=== PATIENT | female | born 1970 | race Caucasian/White ===

== ENCOUNTER → 2019-12-14 10:26 | Outpatient (CLI) | payer OTHER, SELFPAY ==
[2019-12-17 09:44] LABS: COVID19 Sendout Detected (Not Detected)
== END ==
PROVIDERS: Visit Provider Family Medicine
DX: R68.89 Other general symptoms and signs (principal)
CPT/HCPCS: 87635

== ENCOUNTER → 2021-08-19 10:57 | Outpatient (CLI) | payer OTHER, SELFPAY | PROVIDERS: Referring Provider Orthopaedic Surgery Orthopaedic Surgery of the Spine; Visit Provider Orthopaedic Surgery Orthopaedic Surgery of the Spine | DX: Z01.818 Encounter for other preprocedural examination (principal) | CPT/HCPCS: 93005 ==

== ENCOUNTER → 2021-08-28 11:29 | Outpatient (CLI) | payer OTHER, SELFPAY ==
[2021-08-28 12:41] LABS: COVID19 -Nasal RAPID Negative (Negative)
== END ==
PROVIDERS: Visit Provider Physician Assistant
DX: Z20.822 Contact with and (suspected) exposure to COVID-19 (principal)
CPT/HCPCS: 87635

== ENCOUNTER 2021-08-31 05:54 | Inpatient (IN) | payer OTHER, SELFPAY ==
[2021-08-27 10:49] VITALS: BMI 29.4
[2021-08-31] VITALS (16 sets, daily range): BP systolic 121–142; BP diastolic 66–79; PULSE 55–71; RESP 9–18; TEMP 36.2–37.2; O2SAT 93–100; BMI 26.6
[2021-08-31] MEDS: LACTATED RINGERS 1,000 ML 42 ML IV ×2 (07:08→09:15)
--- NOTE | 2021-08-31 07:42 | PM.PREOP ---
Pre-operative Note COVID-19 COVID-19 status: Negative Result date/Date tested (Pos, Neg/Pending): 08/29/21 Interval Note History & Physical reviewed/Exam performed by Physician: Yes Changes to H&P: No
[2021-08-31] MEDS: CEFAZOLIN 2 GM/20 ML SYRINGE IV ×3 (08:10→23:41)
--- NOTE | 2021-08-31 08:22 | SUR.OPER ---
Supine, head on gel donut. Arms padded with gel pads, tucked at sides, towel roll under shoulders. Safety belt at thigh. Legs uncrossed.
[2021-08-31] MEDS: BUPIVACAINE 0.25% (PF) 30 ML, EPINEPHrine 0.3 MG INJ (10:14)
--- NOTE | 2021-08-31 10:20 | P.OP_ITS ---
Operative Date/Time/Diagnoses Date of procedure: 08/31/21 Time of procedure: 07:45 Pre-op diagnosis: 1. C5-6, C6-7 spinal stenosis 2. C5-6, C6-7 spondylosis with radiculopathy Post-op diagnosis: same Procedure & Clinicians Procedure: 1. C5-6 C6-7 anterior cervical diskectomy and fusion 2. C5-6 C6-7 anterior interbody cage placement 3. C5-6 C6-7 anterior instrumentation with plate and screw placement in C5-C6 and C7 vertebrae 4. Utilization of microsurgical technique and operating microscope Same procedure as scheduled: Yes Indications: Patient has been having chronic neck pain and worsening cervical radiculopathy after a work injury. Patient failed multiple conservative management with worsening pain weakness and numbness in her upper extremity. Patient has been having difficulty performing activity of daily living. After discussing risks benefits of treatment options, patient elected proceed with surgery. Surgeon: Matt Jasmine Battery Tester Field: Melody Rene Click Yes if Unassisted: No Anesthesia Type: General Operative Notes Closure Type: primary Specimen(s): none sent Prosthetic devices, grafts, tissues, transplants, or devices: Globus Extend Plate, PEEK cages Estimated Blood Loss (mL): 5 Blood products transfused: none Procedure in detail: Patient was seen in the preoperative area. Risks and benefits of the surgery was discussed with the patient. Operative consent was obtained and placed in the chart. Patient was then taken to the operative room. Prophylactic antibiotic was given less than 0.5 hr prior to skin incision. General anesthesia was administered. Patient was placed into a supine position on her radiolucent table. Bilateral shoulders were taped down to allow proper C-arm imaging. Anterior cervical area was prepped and draped in a sterile fashion. Time-out was performed at this time. Using lateral C-arm imaging, the level between C5 and C7 was identified and marked on patient's neck. A oblique incision from midline towards medial border of sternocleidomastoid muscle was made. The platysma muscle was incised in line with skin incision. Metzenbaum scissor was used to develop the plane between the medial border of sternocleidomastoid d and the strap muscles medially. The carotid sheath and its contents were identified and protected behind the hand- held retractor during the entire case. The plane between the carotid sheath and strap muscles was developed with Metzenbaum scissors. Dissection was made down to the level of the anterior cervical fascia. Longus colli muscle was incised on the anterior aspect of vertebral bodies bilaterally from C5-C7. Spinal needle was placed into the C5-6 disc space and confirmed with lateral C-arm imaging. Using microsurgical technique and operative microscope, anterior cervical diskectomy was performed at C5-6 and C6-7 level. This was done by removing the disc material, removing the anterior and posterior osteophytes posterior longitudinal ligaments along with performing bilateral foraminotomies at both levels. Patient was found to have severe central and foraminal stenosis at both levels. Patient's stenosis was fully decompressed after decompression was completed. After the diskectomy was completed, 2 anterior interbody cages were obtained. The cages were packed with globus via cell bone grafting material. One cage each along with the bone grafting material was then packed into the interbody spaces from C5-C7 with one cage into each interbody level. After the cages were placed, the anterior cervical plate was stabilized to the C5-C7 vertebrae using 2 screws at each each level. Total 6 screws were placed. After confirming placement of the hardware with AP and lateral C-arm imaging, the screws were locked into the plate using the locking mechanism and torque limiting screwdriver. After the hardware was placed and confirmed with AP and lateral C-arm imaging, the wound was irrigated with sterile normal saline. The platysma muscle and the subcutaneous tissue was closed with 2-0 Vicryl. The skin was closed with 4-0 Monocryl and Steri-Strips. Patient tolerated the procedure well. Patient was transferred recovery room in stable condition. There were no complications. Complications: none Post-operative Condition: stable Disposition: PACU Plan for aftercare: Admit to inpatient hospital
--- NOTE | 2021-08-31 10:26 | DI.RAD.S_ITS ---
PROCEDURE: XR CERVICAL SPINE 2V OR 3V INDICATIONS: C5-6, C6-7 ACDF TECHNIQUE: 2 fluoroscopic images of the cervical spine. COMPARISON: [facility] MR, MR CERVICAL SPINE WITHOUT CONTRAST, 06/17/2021, 12:54. FINDINGS: Bones: Anterior fixation hardware at C5-C7 with evidence of discectomy. Soft tissues: Endotracheal tube is seen. IMPRESSION: Postsurgical changes of the cervical spine. Dictated by: Kain Montes M.D. on 08/31/2021 at 14:24 Approved by: Kain Montes M.D. on 08/31/2021 at 14:26
[2021-08-31] MEDS: ONDANSETRON 4 MG/2 ML INJ IV ×3 (10:48→20:27)
[2021-08-31] MEDS: HYDROMORPHONE 2 MG INJ IV (11:01)
[2021-08-31] MEDS: OXYCODONE/ACETAMINOPHEN 5/325 TABLET 1 TAB PO (11:31)
--- NOTE | 2021-08-31 12:13 | SUR.PHASEI ---
1210 hrs Pt transported to room 211. Report to KRISTEN Lara.
[2021-08-31] MEDS: SODIUM CHLORIDE 0.9% 1,000 ML 100 ML IV ×2 (12:24→22:41)
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
[2021-08-31] MEDS: OXYCODONE IR 5 MG TABLET 10 MG PO ×2 (14:36→20:27)
--- NOTE | 2021-08-31 16:24 | PT-IP ANOTE ---
Attempted to see pt x 2 this PM with pt refusing both times due to dizziness and nausea. She had been up twice to [facility] and became symptomatic both times. Per nursing, her BP has been stable. Pt is willing to work with PT in the morning.
[2021-08-31] MEDS: ACETAMINOPHEN 325 MG TABLET 650 MG PO (16:58)
--- NOTE | 2021-08-31 19:29 | PC.NURSE ---
A&Ox4. Arrived from PACU with anterior neck dressing CDI, cervical collar in place. Room air 96%. Pain 5/10 in neck and headache. Given PRN oxy and tylenol. Having some n/v, given zofran. Had 50 cc vomit after attempting to eat some dinner. Ns going at 100 into right hand. at bedside. Call light within reach, bed low.
[2021-08-31] MEDS: DOCUSATE 100 MG CAPSULE PO (20:27)
[2021-08-31] MEDS: SENNOSIDES 8.6 MG TABLET 17.2 MG PO (20:27)
[2021-08-31] MEDS: BACLOFEN 10 MG TABLET PO (20:28)
[2021-09-01 02:55] VITALS: BP 143/76; PULSE 58; RESP 18; TEMP 36.2; O2SAT 96
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
[2021-09-01 08:00] VITALS: BP 137/76; PULSE 60; RESP 16; TEMP 36.9; O2SAT 98
[2021-09-01] MEDS: PROGESTERONE, MICRONIZED 100 MG CAPSULE 200 MG PO (09:02)
[2021-09-01] MEDS: OXYCODONE IR 5 MG TABLET 10 MG PO ×2 (09:02→11:46)
[2021-09-01] MEDS: estradioL 1 MG TABLET PO (09:02)
[2021-09-01] MEDS: DOCUSATE 100 MG CAPSULE PO (09:02)
--- NOTE | 2021-09-01 10:13 | OT.IP.TRT ---
Current Diagnoses Spondylolisthesis, cervical region (08/31/21) Spinal stenosis, cervical region (08/31/21) Cervical disc disorder at C6-C7 level with radiculopathy (08/31/21) Surgery Performed Operation Date: 08/31/21 07:45 Actual Procedures p C5-6, C6-7 ACDF w. anterior instrumentation(Not Applicable) - Matt Jasmine MD Occupational Therapy Treatment Note M2 OT-IP Current Condition Start: 08/31/21 14:34 Freq: Status: Active Protocol: Document 08/31/21 14:36 [facility] (Rec: 08/31/21 14:51 [facility] [id number]) Occupational Therapy Current Condition Current Condition Evaluation Date 08/31/21 Treatment Diagnosis S/p C5-6, C6-7 ACDF Diagnosis Onset Date 08/31/21 Post Operative Precautions Cervical Spine Precautions Soft Collar for Comfort,No Heavy Lifting,Log Roll M3 OT- IP Subjective and Pain Start: 08/31/21 14:34 Freq: Status: Active Protocol: Document 09/01/21 10:05 [facility] (Rec: 09/01/21 10:13 [facility] [id number]) OT- Subjective Occupational Therapy Visit Type Type Treatment Note Visit Start Time 09:04 Visit Stop Time 09:28 Total Visit Minutes 24 Occupational Therapy Visit Comments Patient Comments Pt agreed to get up and get dressed, pt's fiancee in the room for caregiver training. Patient/Caregiver Goals To go home. OT Pain Assessment Pain When Pain Assessed At Rest Pain Present Pain Present Pain Reported Location l arm Intensity 5 Scale Used Numeric (0 - 10) M4 OT- IP ADL's Start: 08/31/21 14:34 Freq: Status: Active Protocol: Document 09/01/21 10:05 [facility] (Rec: 09/01/21 10:13 [facility] [id number]) OT HSV-Dtvk-Ccrstxp Comments OT Self-Feeding Comments NOt at meal time. OT ADL-Grooming General Evaluation Grooming Ability Independent OT ADL-Oral Care General Eval Oral Care Ability Independent Comments Oral Care Comments Educated at this time would be easier to just spit into a cup when rinsing her mouth out . Other option to hinge at her hips to lean into the sink to spit. OT ADL-Dressing General Eval Upper Body Dressing Ability Minimal Assistance Lower Body Dressing Ability Standby Assistance Comments OT Dressing Comments Able to do LB dressing comfortably when crossing her legs while seated. Pt needing ALFRED to help tread her arms into her sleeves of button front shirt. Pt needing assist to don the soft collar and pt's cedrice able to assist her. OT ADL-Toileting Comments OT Toileting Comments Pt not having to use the toilet at this time. OT ADL-Bathing Comments OT Bathing Comments Pt states to shower at home. Pt states to assist for shower and to look nto getting a shower chair. . M6 OT- IP Functional Cognition Start: 08/31/21 14:34 Freq: Status: Active Protocol: Document 09/01/21 10:05 [facility] (Rec: 09/01/21 10:13 [facility] [id number]) Cognitive Factors Limiting Selfcare Function Cognitive Comments Cognitive Assessment Comments NO deficits. M7 OT- IP Mobility and Balance Start: 08/31/21 14:34 Freq: Status: Active Protocol: Document 09/01/21 10:05 [facility] (Rec: 09/01/21 10:13 [facility] [id number]) OT- Bed Mobility Assessment Supine to Sit Supine to Sit Assist Standby Assistance Sit to Supine Sit to Supine Assist Standby Assistance OT-Transfer Assessment Sit to and From Stand Sit to and from Stand Standby Assistance,Contact Guard Assistance Transfers Transfer Ability Standby Assistance,Contact Guard Assistance Technique Transfer Destination Bed Devices Transfer Assistive Devices None,Gait Belt,Front Wheeled Walker Comments Mobility Comments Attempted to take a few steps without the FWW and pt unsteady and needing CGA, therefore at this time much safer to use the FWW. IN addition pt has pets in the house which the FWW will also be a good barrier to use as well. Able to show pt's how to amado/doff the gait belt. OT- Gait Assessment Comments Gait Ability Comments SBA with FWW. OT- Balance Assessment Sitting Balance and Reactions Static Sitting Balance Ability Normal Dynamic Sitting Balance Ability Good Standing Balance and Reactions Static Standing Balance Ability Good Dynamic Standing Balance Ability Fair Comments Other Balance Tests/Deviations/Treatment Pt states to get a FWW for : home use. M9 OT- IP Assessment and Plan Start: 08/31/21 14:34 Freq: Status: Active Protocol: Document 09/01/21 10:05 [facility] (Rec: 09/01/21 10:13 [facility] [id number]) OT Summary Assessment and Plan Potential Rehabilitation Potential Good Analytic Complexity at Evaluation Low Summary Progress Towards Goals Progressing Toward Goals Assessment Summary Able to go over ADl and mobility needs with pt and fiancee and both able to show good safety for all needs. Pt looking to go home today. Pt states to get a shower chair and FWW for home use. Goals Days to Meet Goals 1 Frequency of Treatment Frequency Of Treatment Once a Day Treatment Plan OT Treatment Plan ADL Training,Functional Cognition Training,Functional Mobility,Patient/Family Education,Discharge Planning Other Treatment Recommendations and Next Shower if still here Treatment Focus Discharge Recommendations OT Discharge Recommendations Home with Assistance,Home with 24/7 Assist Available Home Equipment Needs fww,shower chair Transportation Needs at Discharge Private Vehicle
--- NOTE | 2021-09-01 10:49 | CM.DANOTE ---
DCP: Case received, EMR reviewed and met with patient. Her significant other, Shahid Edwards was also in the room. Introduced self and role. Was able to obtain information regarding patient's baseline activity status prior to surgery. DCP assessment completed with information currently available. Patient is a 51 year old female who admitted yesterday morning to the care of the orthopedic team. PCP: Dr. Tovar. Payer: confirmed: [employer]. Patient came to the hospital for a surgical procedure. She had C5-6, C6-7 anterior cervical diskectomy and fusion. Patient has history of spinal stenosis, as well as cervical disc disorder. Met with patient in her room. Her partner, Shahid, was at bedside. Patient resides in [place]. At her baseline, she is independent. She had worked with O.T. yesterday, but not with P.T. secondary to nausea. She is feeling better today. Patient indicated, this was a result of a work related injury that happened back in 2019 when I was carrying a [place] bed. She had been employed at [employer]. P: Patient has discharge orders for home. She will be working with P.T prior to discharge. Emi Sheets RN/Construction Person Discharge Planning/Care Management Advanced directive, confirm from FAMILY Start: 08/31/21 12:31 Freq: Q24H Status: Active Protocol: Document 08/31/21 12:54 KA (Rec: 08/31/21 12:56 KA [id number]) Advance Directive, confirm on record Time 12:56 Person contacted Patient Copy received No CM Discharge Assessment Start: 09/01/21 10:44 Freq: Status: Active Protocol: Document 09/01/21 10:46 (Rec: 09/01/21 10:49 [id number]) Discharge Planning Assessment Assigned Armature Winder Emi Sheets RN/Construction Person Advance Directives? Yes Advance Directives on File No History Provided By Patient,Medical Record Prior Living Arrangements Mobile home Household Members significant other Type of transporation used prior to Drives own vehicle admit Independent with ADL's Yes Is patient alert and oriented? Yes Caregiver for Another No Barriers to Discharge No Discharge Plan Home Transportation Arrangement Significant other. Referrals Initiated None needed Whiteboard Updated in Patient Room with Yes name and ext. # of Armature Winder Review Status In Process Next Review Type Continued Stay Review Pre-Anesthesia Assessment Start: 08/26/21 12:32 Freq: Status: Active Protocol: Document 08/27/21 10:49 [facility] (Rec: 08/26/21 13:45 CAB [id number]) Pre-Anesthesia Assessment PAC Comment Reviewed pre-op EKG w/aparna See to proceed Patient Information Reviewed Via Phone Assessment Assessment Completed With Patient Diagnostic Results CBC Comment Outside CBC scanned, EKG @ 08/19/21, COVID @ 08/31/21 Primary Care Provider Durga Tovar Seen Specialist in Last 12 Months Yes Specialist Seen Orthopedist Primary Language Belarusian Mutuel Clerk Required No Height 5 ft 7 in Weight 188 lb Body Mass Index (BMI) 29.4 Hearing Ability Normal Visual Assist Glasses Dentition Type Teeth, Natural Present Comment Dyslexia - hands on best for learning Hx Anesthesia Reactions Yes: Hard time waking, felt panic Hx Family Anesthesia Reaction No Hx Malignant Hyperthermia No Hx Blood Transfusions No Anesthesia Review Requested No alcohol intake current alcohol intake frequency holidays/special occasions only Smoking Status Current some day smoker Tobacco type cigarettes how long ago did patient quit smoking Once in a blue rawls, if I'm stressed Substance Use Type does not use Pain Present Pain Reported Musculoskeletal Symptoms Difficulty Walking,Limited Range of Motion,Neck Pain History of Falling (Recent or History of No ) Patient is completely paralyzed or No completely immobile Mental Status Oriented to own ability Is patient on oxygen? No Does patient have MORRIS/SOB No Hx Sleep Apnea No Currently Taking a Beta Omar No Can You Climb a Flight of Stairs Without Yes SOB Hx Chest Pain No Hx SOB No Hx Syncope or Dizziness No Anti-Coagulant Therapy No Has a Dredge Engineer No Cardiac Testing No Hx Pacemaker/ICD No Pacemaker Rep Required? No Cardiac Clearance Received Not Applicable Diet Type At Home Regular dysphagia Yes: Trouble swallowing solids r/t pain Urinary Catheter Present No Hx Urinary Self Catheterization No Diabetes No Patient No Lactating No Hx Drug Resistant Organism No Presence of External or Internal Medical No Devices Have you had any close contact with Yes: Pt had COVID 12/14/19 someone diagnosed with COVID-19? Are you experiencing any of these No symptoms symptoms? Received a COVID vaccine? Yes: J&J Marital Status Single Lives With significant other Prior Living Arrangements Mobile home Support System Significant Other Does the Patient Have Assistance After Yes Surgery Patient Discharge Plan Description Return Home Comment Pt advised 1-2 day length of stay per surgeon Feels Safe in Current Environment Yes Been Physically Hurt or Threatened By a No Person in Current Environment Do you have thoughts of harming yourself None or others? Are you currently considering suicide? No Do you have a plan to hurt yourself or No Plan others? Do You Have Any Spiritual Beliefs That No May Affect Your HC Choices? Do You Have Any Cultural Practices That No May Affect Your HC Choices? Comment Pentecostal Who Can We Speak to About Patient's Care Family, friends Identifying Code for Release of Patient Declines to issue Information Health Care Proxy/Next of Kin Shahid (Boyfriend) Health Care Proxy Emergency Contact Name Jonatan (son) Emergency Contact Advance Directives? No Power of Behaviorist No PAC Instructions Durable medical equipment, Medications to take/avoid, Nasal antibiotic,No ETOH/ petroleum product on skin DOS, NPO,Post-op transportation,Pre -surgical wash,Sensory aids, Sturdy shoes/comfortable clothes,Do not bring valuables and remove jewelry
[2021-09-01 12:10] VITALS: O2SAT 95
--- NOTE | 2021-09-01 12:38 | PC.NURSE ---
A&Ox4. VSS. Pain 11/26, well controlled with 5 mg oxycodone. Dressing with minimal shadow drainage. Good appetite despite throat being sore. No n/v this morning. Soft collar in place. Iv removed. Discharge instructions reviewed. Questions answered. [place] off unit at 11:50, driving home.
== END 2021-09-01 11:50 | disposition home or self-care (01) | DRG 23 ==
PROVIDERS: Admitting Provider Orthopaedic Surgery Orthopaedic Surgery of the Spine; PCP Family Medicine Sports Medicine; Referring Provider Preventive Medicine Occupational Medicine; Visit Provider Orthopaedic Surgery Orthopaedic Surgery of the Spine
PROC: 0RG20A0 Fusion of 2 or more Cervical Vertebral Joints with Interbody Fusion Device, Anterior Approach, Anterior Column, Open Approach (ICD-10-PCS; principal; 2021-08-31 07:45)
DX: M50.123 Cervical disc disorder at C6-C7 level with radiculopathy (principal); M48.02 Spinal stenosis, cervical region; M43.12 Spondylolisthesis, cervical region; M47.22 Other spondylosis with radiculopathy, cervical region; F17.200 Nicotine dependence, unspecified, uncomplicated; Z20.822 Contact with and (suspected) exposure to COVID-19
CPT/HCPCS: 72040; 72100; 76000; 82962; 97162; 97165; 97530; 97535; C1776; J0171; J0690; J1100; J1170; J2250; J2405; J2704; J3010

== ENCOUNTER → 2022-06-28 09:58 | Outpatient (CLI) | payer OTHER, SELFPAY ==
[2021-08-31 06:37] VITALS: BMI 26.6
[2022-06-28 13:37] LABS: Add Manual Diff / Slide Review NO; Basophils Absolute Auto 0 /uL (0-100); Basophils Percent Auto 0.4 % (0-2); Eosinophils Absolute Auto 100 /uL (0-450); Eosinophils Percent Auto 1.9 % (2-4); Hematocrit 35.8 % (36-46); Hemoglobin 12.4 g/dL (12.0-16.0); Lymphocytes Absolute Auto 1800 /uL (1100-4500); Lymphocytes Percent Auto 27.5 % (25-40); Mean Corpuscular HGB Conc 34.8 % (30-36); Mean Corpuscular Hemoglobin 31.7 PG (26-34); Mean Corpuscular Volume 91.1 fL (80-100); Monocytes Absolute Auto 600 /uL (0-900); Monocytes Percent Auto 8.9 % (3-14); Neutrophils Absolute Auto 4100 /uL (1500-7000); Neutrophils Percent Auto 61.3 % (50-75); Platelet Count 274 X10^3/uL (150-400); Red Blood Cell Count 3.93 X10^6/uL (4.0-5.2); Red Cell Distribution Width 12.8 % (11.6-14.8); White Blood Cell Count 6.7 X10^3/uL (4.5-11.0)
[2022-06-28 14:02] LABS: Hemoglobin A1C% w Est Avg Glu 4.7 % (4.0-6.0)
[2022-06-28 14:13] LABS: BUN Creatinine Ratio 25.8 (6-22); Blood Urea Nitrogen 16 mg/dL (7-17); Calcium 8.5 mg/dL (8.4-10.2); Carbon Dioxide 25 mmol/L (22-32); Chloride 105 mmol/L (98-107); Estimated Glomerular Filt Rate > 60 mL/min (>60); Glucose 83 mg/dL (70-100); HEMOLYSIS < 15 (0-50); Potassium 4.1 mmol/L (3.4-5.1); Sodium 138 mmol/L (137-145)
== END ==
PROVIDERS: PCP Family Medicine Sports Medicine; Referring Provider Orthopaedic Surgery Orthopaedic Surgery of the Spine; Visit Provider Orthopaedic Surgery Orthopaedic Surgery of the Spine
DX: Z01.818 Encounter for other preprocedural examination (principal); Z01.812 Encounter for preprocedural laboratory examination; R73.9 Hyperglycemia, unspecified
CPT/HCPCS: 36415; 80048; 83036; 85025; 93005; 93010

== ENCOUNTER → 2022-08-09 09:43 | Outpatient (CLI) | payer OTHER, SELFPAY ==
[2021-08-31 06:37] VITALS: BMI 26.6
[2022-08-09 11:03] LABS: COVID19 -Nasal RAPID Negative (Negative)
== END ==
PROVIDERS: PCP Family Medicine Sports Medicine; Referring Provider Orthopaedic Surgery Orthopaedic Surgery of the Spine; Visit Provider Orthopaedic Surgery Orthopaedic Surgery of the Spine
DX: Z20.822 Contact with and (suspected) exposure to COVID-19 (principal)
CPT/HCPCS: 87635; C9803

== ENCOUNTER 2022-08-11 06:24 | Inpatient (IN) | payer OTHER, SELFPAY ==
[2021-08-31 06:37] VITALS: BMI 26.6
[2022-08-02 09:49] VITALS: BMI 29.7
[2022-08-11] VITALS (15 sets, daily range): BP systolic 101–139; BP diastolic 58–79; PULSE 55–75; RESP 8–16; TEMP 35.7–36.6; O2SAT 93–100; BMI 29.4
--- NOTE | 2022-08-11 | DI.RAD.S_ITS ---
PROCEDURE: XR LUMBAR SPINE 2-3V INDICATIONS: L3-4 L4-5 TLIF TECHNIQUE: 3 views of the lumbar spine were acquired. COMPARISON: None. FINDINGS: Bones: Intraoperative fluoroscopic views of discectomy and interbody fixation of L3-4 and L4-5 with pedicular screw and neel fixation. IMPRESSION: Intraoperative fluoroscopic views. Dictated by: Zack Hebert M.D. on 08/12/2022 at 9:45 Approved by: Zack Hebert M.D. on 08/12/2022 at 9:46
[2022-08-11] MEDS: LACTATED RINGERS 1,000 ML 42 ML IV ×2 (07:23→08:59)
--- NOTE | 2022-08-11 07:41 | PM.PREOP ---
Pre-operative Note COVID-19 COVID-19 status: Negative Result date/Date tested (Pos, Neg/Pending): 08/10/22 Criteria for continued procedure: Expected advancement of disease process, Possibility delay results in more complex future surgery or treatment, Increased loss of function, Continuing or worsening of significant or severe pain, Deterioration of the patient's condition or overall health and Delay expected to result in less-positive ultimate med/surg outcome Interval Note History & Physical reviewed/Exam performed by Physician: Yes Changes to H&P: No
[2022-08-11] MEDS: CEFAZOLIN 2 GM/100 ML PREMIX 100 ML IV ×3 (08:00→23:44)
[2022-08-11] MEDS: BUPIVACAINE 0.25% (PF) 30 ML, EPINEPHrine 0.3 MG INJ (08:24)
--- NOTE | 2022-08-11 08:36 | SUR.OPER ---
Prone on spine table, head in foam head support, padded chest and pelvic supports, gel pad at knees, lower legs supported by pillows; nipples, genitalia and toes free of pressure, arms secured on foam padded arm boards at <90 degrees abduction. Tape over blanket at thigh secured to table.
[2022-08-11] MEDS: BUPIVACAINE LIPOSOME 266 MG/20 ML VIAL INJ (08:42)
--- NOTE | 2022-08-11 11:59 | PM.OP.1 ---
Operative Date/Time/Diagnoses Date of procedure: 08/11/22 Time of procedure: 07:40 Pre-op diagnosis: 1. L3-4, L4-5 spinal stenosis with neurogenic claudication. 2. L3-4 spondylolisthesis 3. L3-4, L4-5 spondylosis with radiculopathy Post-op diagnosis: same Procedure & Clinicians Procedure: 1. L3-4, L4-5 Postero-lateral and posterior interbody fusion 2. L3-4, L4-5 interbody cage placement. 3. L3-4, L4-5 decompressive laminectomy with bilateral facetecomies 4. L3-4, L4-5 Posterior segmental instrumentation 5. Larimer of bone marrow from iliac crest 6. Utilization of microsurgical technique and operating microscope 7. Utilization of robotic assisted navigation Same procedure as scheduled: Yes Indications: Patient has been having chronic back pain and worsening lumbar radiculopathy and symptoms of neurogenic claudication caused by her injury while working. Patient failed multiple conservative management with worsening pain weakness and numbness in her lower extremity. Patient has been having difficulty performing activity of daily living. After discussing risks benefits of treatment options, patient elected proceed with surgery. Surgeon: Matt Jasmine Icu Registered Nurse: Michael Painting Click Yes if Unassisted: No Anesthesia Type: General Operative Notes Closure Type: primary Specimen(s): none sent Prosthetic devices, grafts, tissues, transplants, or devices: Globus CREO MIS screws, Rise cages Applied: catheter Estimated Blood Loss (mL): 150 Blood products transfused: none Procedure in detail: Patient was seen in the preoperative area. Risks and benefits of the surgery was discussed with the patient. Informed consent was obtained from the patient and placed in the chart. Surgical site was marked. Patient was taken to the operative room. General anesthesia was administered. Prophylactic antibiotic was given to the patient less than 30 min before the incision was made. Patient was placed into a prone position on the Bul[place]o table. Patient's back was then prepped and draped in the sterile fashion. Time-out was performed at this time. After patient was prepped and draped, patient's PSIS was palpated and marked bilaterally. Small 1 cm incision was made over the PSIS for placement of the reference probes. Two trocar was placed into the PSIS 1 on each side. The reference probe was attached to the trocar of the reference apparatus. At this time the C-arm imaging was used to confirm AP and lateral of L3, L4-L5 vertebrae and merged the C-arm imaging using the [employer] robotic navigation system with the CT of the lumbar spine. After successful merging was completed and confirmed, skin marker was used to claude out the skin incision using the [employer] robotic arm. Bilateral incision was made at this time. Pre templated trajectory was used and guided using the [employer] robotic navigation system for bilateral L3 L4, L5 pedicle screw placement. This was done by using the robotic arm to guide the high-speed bur to make a cortical entry point. Next a drill was placed also using the robotic arm and guided using the navigation system drilling partially through bilateral L3, L4, L5 pedicles. Next L3, L4, L5 pedicle screws it was pre templated and measured was placed onto the power motor coach bus driver and inserted into the pedicles bilaterally. After all 6 screws were placed C-arm imaging was taken of both AP and lateral to confirm the placement. Excellent placement of the screws were confirmed and a matched precisely with the pre planned screw placement using the navigation system. MARs retractor was inserted using [employer] guidence. Globus MARS retractors was placed inside the incision and docked onto the L3, L4 lamina. Using microsurgical technique and operating microscope, a L3, L4 laminectomy and L3-4, L4-5 facetectomy was performed using a Kerrison rongeur. Patient was found have severe central stenosis, lateral recess and neural foramen stenosis which was fully decompressed after the laminectomy facetectomy. More than 75% of the facets were removed during the process of decompression rendering L3-4, L4-5 level grossly unstable and required a fusion procedure at the same time. The disc space at L3-4, L4-5 was identified, and a total diskectomy was performed at L3-4, L4-5 level. The endplates were decorticated using a rasp and shaver. The total diskectomy and decortication was performed at L3-4, L4-5 level in order to to accomplish a L3-4, L4-5 fusion. The local bone from the laminectomy and facetectomy was saved for local bone grafting. After the total diskectomy and decortication was completed, Trifecta bone graft material was combined with local bone that was harvested earlier. At this time, a separate skin is incision was made over the iliac crest. A Jamshidi needle was inserted into the iliac crest through a separate skin incision. 5 cc of bone marrow aspiration was obtained through the separate skin incision using a Jamshidi needle from the iliac crest. The bone marrow aspiration was combined with local bone and the Trifecta bone grafting material. The bone grafting material was placed into the L3-4, L4-5 interbody space along with expandable cages. One cage each was inserted into the L3-4 L4-5 interbody space along with bone graft material. The cage was expanded to its maximum height using the torque limiting screwdriver. The disc preparation as well as the cage insertion were also performed under navigation guidance. After the cage was placed, AP and lateral C-arm imaging was taken to confirm placement of the cage and excellent position was confirmed. Globus MARS retractor was inserted and docked onto the L3-4, L4-5 posterolateral gutter on the right side. Using the power drill, posterior-lateral decortication was performed at L3-4, L4-5 level until bleeding cortical bone was identified. The remaining bone grafting material was placed into the L3-4, L4-5 posterior lateral gutter he order to accomplish posterolateral fusion at the L3-4, L4-5 level. At this time the tulips were attached to the L3, L4-L5 pedicle screw shanks. After measuring the length of the rods, they were inserted into the tulips of the pedicle screws and locked in place using locking caps and torque limiting screwdriver bilaterally. Total 6 caps and 2 titanium rods was used in order to complete the posterior instrumentation construct. After all the hardware was placed, and confirmed with AP and lateral C-arm imaging, the wound was then irrigated with sterile normal saline and packed with Ray-Tico gauze for 3 min to accomplish hemostasis. After the gauze was removed the deep fascia was closed with #1 Vicryl suture. The subcutaneous layer was closed with 2-0 Vicryl. The skin was closed with skin megan. Patient tolerated the procedure well. There were no complications. Neuro monitoring system was used to monitor patient's neurologic status throughout entire procedure. There was no disturbance of the neural monitoring signals throughout the case. Complications: none Post-operative Condition: stable Disposition: PACU Plan for aftercare: Admit to inpatient hospital
[2022-08-11] MEDS: fentaNYL 100 MCG/2 ML INJ IV ×3 (12:30→13:00)
[2022-08-11] MEDS: hydrOXYzine 50 MG/ML INJ 25 MG IM (12:49)
[2022-08-11] MEDS: OXYCODONE IR 5 MG TABLET PO (12:58)
--- NOTE | 2022-08-11 13:00 | SUR.PHASEI ---
1215 - Received to PACU after general anesthesia. Airway patent, self maintained. Report from Dr Arriaga and KRISTEN Richmond.
--- NOTE | 2022-08-11 13:34 | SUR.PHASEI ---
Transferred to room 204 with belongings bag x1. Received in room by KRISTEN Mendoza. VS remain stable.
[2022-08-11] MEDS: ONDANSETRON 4 MG/2 ML INJ IV (14:04)
[2022-08-11] MEDS: SODIUM CHLORIDE 0.9% 1,000 ML 100 ML IV (14:05)
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
[2022-08-11] MEDS: OXYCODONE IR 5 MG TABLET 10 MG PO ×2 (18:08→22:37)
[2022-08-11] MEDS: DOCUSATE 100 MG CAPSULE PO (20:28)
[2022-08-11] MEDS: SENNOSIDES 8.6 MG TABLET 17.2 MG PO (20:28)
[2022-08-11] MEDS: ACETAMINOPHEN 325 MG TABLET 650 MG PO (20:29)
[2022-08-12] VITALS (7 sets, daily range): BP systolic 101–115; BP diastolic 51–68; PULSE 68–77; RESP 12–20; TEMP 36.4–36.8; O2SAT 93–98
[2022-08-12] MEDS: BACLOFEN 10 MG TABLET PO (00:13)
--- NOTE | 2022-08-12 00:57 | PC.NURSE ---
Patient's back drsg intact with sanguinous drainage seeping through. Drsg reinforced at midnight.
[2022-08-12] MEDS: OXYCODONE IR 5 MG TABLET 10 MG PO ×3 (02:10→08:05)
[2022-08-12] MEDS: hydrOXYzine pamoate 25 MG CAPSULE PO ×2 (06:03→21:26)
[2022-08-12] MEDS: ACETAMINOPHEN 325 MG TABLET 650 MG PO ×2 (06:03→14:43)
[2022-08-12] MEDS: DOCUSATE 100 MG CAPSULE PO ×2 (08:05→21:26)
[2022-08-12] MEDS: PROGESTERONE, MICRONIZED 100 MG CAPSULE 200 MG PO (08:08)
[2022-08-12] MEDS: estradioL 1 MG TABLET PO (08:08)
[2022-08-12 09:04] LABS: Hematocrit 32.7 % (36-46); Hemoglobin 11.5 g/dL (12.0-16.0)
--- NOTE | 2022-08-12 09:31 | CM.DANOTE ---
DCP: Case received, EMR reviewed and met with patient. Introduced self and role. Was able to obtain information regarding patient's baseline activity status prior to her surgery, as well as her current living situation. DCP assessment completed with information currently available. Patient is a 52 year old female who admitted yesterday morning to the care of the orthopedic team. PCP: Dr. Tovar. Payer: confirmed: [employer] Patient came to the hospital for a surgical procedure. Patient had L3-4, L4-5 postero-lateral and posterior interbody fusion. Patient has history of spinal stenosis. Met with patient in her room. She was laying in bed, alert and oriented. She resides in [facility] spouse, Shahid. At her baseline, she is independent. She does have a 4WW and FWW, has not been using prior to surgery. She does drive, but short distances. Confirmed that her spouse will be able to assist her at home. She did work with [facility] yesterday, was a max assist. Will see how she does today. P: DCP to continue to follow for needs. Will see how she does with [facility] Home Health may be an option for her as well. Emi Sheets RN/Assembler Knife Discharge Planning/Care Management CM Discharge Assessment Start: 08/12/22 09:28 Freq: Status: Active Protocol: Document 08/12/22 09:29 (Rec: 08/12/22 09:30 [id number]) Discharge Planning Assessment Assigned Subscription Clerk Emi Sheets RN/Assembler Knife Advance Directives? Yes Advance Directives on File No History Provided By Patient,Medical Record Prior Living Arrangements Mobile home Household Members spouse Type of transporation used prior to Drives own vehicle admit Comment Patient only has been driving short distances. Independent with ADL's Yes Is patient alert and oriented? Yes Caregiver for Another No DME Already Rented / Owned FWW / Walker Comment Has available, but has not been using prior to surgery. Discharge Plan Home Transportation Arrangement Significant other. Referrals Initiated None needed Whiteboard Updated in Patient Room with Yes name and ext. # of Subscription Clerk Review Status In Process Next Review Type Continued Stay Review Pre-Anesthesia Assessment Start: 08/02/22 09:49 Freq: Status: Complete Protocol: Document 08/02/22 09:49 [facility] (Rec: 08/02/22 10:26 [facility] [id number]) Pre-Anesthesia Assessment Patient Information Reviewed Via Phone Assessment Assessment Completed With Patient Diagnostic Results BMP/CMP,CBC,EKG Comment Labs/ECG @ 06/28/22, COVID screen @ 08/09/22 Primary Care Provider Durga Tovar Seen Specialist in Last 12 Months Yes Specialist Seen Orthopedist Primary Language Montserratian Preferred Language Montserratian Disposal Plant Operator Required No Height 5 ft 7 in Weight 190 lb Body Mass Index (BMI) 29.7 Hearing Ability Normal Visual Assist Glasses Dentition Type Teeth, Natural Present Barriers to Learning None Comment Dyslexia-hands on best for learning Hx Anesthesia Reactions Yes: Hard time waking, felt panic Hx Family Anesthesia Reaction No Hx Malignant Hyperthermia No Hx Blood Transfusions No Hx Blood Transfusion Reaction No Anesthesia Review Requested No Stonework Supervisor No alcohol intake current alcohol intake frequency holidays/special occasions only Smoking Status Current some day smoker Tobacco type cigarettes how long ago did patient quit smoking Once in a blue rawls, if I'm stressed Substance Use Type does not use Pain Present Pain Reported Musculoskeletal Symptoms Abnormal Gait,Back Pain, Difficulty Walking,Muscle Weakness,Numbness,Radiating Pain into Limb,Tremors History of Falling (Recent or History of No ) Patient is completely paralyzed or No completely immobile Mental Status Oriented to own ability Is patient on oxygen? No Does patient have MORRIS/SOB No Hx Sleep Apnea No CPAP/BIPAP use not prescribed Currently Taking a Beta Omar No Can You Climb a Flight of Stairs Without Yes SOB Hx Chest Pain No Hx SOB No Hx Syncope or Dizziness No Anti-Coagulant Therapy No Has a Concrete Craftsman No Cardiac Testing No Hx Pacemaker/ICD No Pacemaker Rep Required? No Diet Type At Home Regular Dysphagia No Gastrointestinal Symptoms None Chronic UTI No Urinary Catheter Present No Hx Urinary Self Catheterization No Diabetes No HgbA1C 4.7 Date 06/28/22 Patient No Lactating No Hx Drug Resistant Organism No Presence of External or Internal Medical Yes: Cervical hardware Devices Received a COVID vaccine? Yes: J&J Received all doses? Yes Marital Status Lives With spouse Current Living Arrangements Mobile home Support System Spouse Does the Patient Have Assistance After Yes Surgery Patient Discharge Plan Description Return Home Comment Pt advised 2-3 day length of stay per surgeon Feels Safe in Current Environment Yes Been Physically Hurt or Threatened By a No Person in Current Environment Do you have thoughts of harming yourself None or others? Are you currently considering suicide? No Do you have a plan to hurt yourself or No Plan others? Do You Have Any Spiritual Beliefs That No May Affect Your HC Choices? Do You Have Any Cultural Practices That No May Affect Your HC Choices? Comment Kristine Who Can We Speak to About Patient's Care Family, friends Identifying Code for Release of Patient Declines to issue Information Health Care Proxy/Next of Kin Shahid () Health Care Proxy Emergency Contact Name Jonatan (son) Emergency Contact Advance Directives? Yes Advance Directives on File No Power of Supervisor Heat Treating No PAC Instructions Durable medical equipment, Medications to take/avoid, Nasal antibiotic,No ETOH/ petroleum product on skin DOS, NPO,Pre-surgical wash,Sensory aids,Sturdy shoes/comfortable clothes,Do not bring valuables and remove jewelry
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
--- NOTE | 2022-08-12 11:04 | PT-IP ANOTE ---
Nursing reported pt nausea and slight vomiting in am, hold PT for am. Will assess mobility progression in pm.
--- NOTE | 2022-08-12 12:54 | PT.IPTN ---
Current Diagnoses Spondylolisthesis, lumbar region (08/11/22) Spinal stenosis, lumbar region with neurogenic claudication (08/11/22) Surgery Performed Operation Date: 08/11/22 07:45 Actual Procedures p L3-4, L4-5 TLIF w. posterior instrumentation -Robot - Matt Jasmine MD Physical Therapy Treatment Note M2 PT-IP Current Condition Start: 08/11/22 17:25 Freq: NEEDED Status: Active Protocol: Document 08/12/22 12:42 SP (Rec: 08/12/22 15:23 SP [id number]) Physical Therapy Current Condition Current Condition Evaluation Date 08/11/22 Treatment Diagnosis s/p L3-4, L4-5 TLIF; difficulty in walking Onset Date 08/11/22 M3 PT-IP Subjective Start: 08/11/22 17:25 Freq: NEEDED Status: Active Protocol: Document 08/12/22 12:42 SP (Rec: 08/12/22 15:23 SP [id number]) Subjective Physical Therapy Visit Type Type Treatment Note Visit Start Time 12:42 Visit Stop Time 12:54 Total Visit Minutes 12 Notes in room, observed tx only. Nurse in room, provided 2nd person assist during mobility required. Vitals: seated EOB: BP 96/48 Symptomatic/progressed palor complexion progression sitting at EOB heavy Max Ax1 trunk support. supine: BP 98/51 * reports her BP ususally is upper 90s to lower 100s. Number of NURSE TECH Visits 1 Physical Therapy Visit Comments Patient Comments agreeable to do PT If want to work with me now would be good because the oxycodone makes me really sleepy. Therapy Pain Assessment Pain When Pain Assessed At Rest Pain Present Pain Present Pain Reported Location Left Hip Scale Used alot (no scale rating reported ) Description Spasm,With Movement Pain Behaviors Calling Out,Facial Grimacing, Holding Area,Restlessness, Wincing lower back Scale Used alot (no scale rating reported ) M4 PT-IP Mobility and Gait Start: 08/11/22 17:25 Freq: NEEDED Status: Active Protocol: Document 08/12/22 12:42 SP (Rec: 08/12/22 15:23 SP [id number]) PT-Bed Mobility Assessment Supine to Sit Supine to Sit Maximum Assistance,2 Person Assistance,Head of Bed Elevated Sit to Supine Sit to Supine Maximum Assistance,Total Assistance,2 Person Assistance Scooting Scooting Up and Down in Bed Dependent PT-Transfer Assessment Comments Mobility Comments Pt left sidelying, pillow between BLEs and behind back for support when arrived reported having back pain but willing to mobilize. Pt able to bring legs to EOB Min A by nurse as needed, L SL>sit Max Ax 2 person for trunk righting w/ cues for breath and abdominal bracing needed to support LB and pain control. Pt attempted to scoot forward to EOB Max A x2, unsuccessful. Sitting BLEs draped off bed Max A for trunk support and pt BUE heavily WB on bed reports back pain, pt reported nausea (NURSE TECH provided emesis bag and had to hold for pt), pt became increased palor face color, reported dizziness, nursing started assessing vitals when pt reported needed to lay down . Max/Total A x2 to sit> L SL> supine with cues log roll technique. Pt cried out spasming pain L proximal hamstring/posterior hip, NURSE TECH provided gentle STMs to proximal HS while asking pt feedback for directioning. NURSE TECH /nurse scooted pt up in bed, pillow under upper thighs for pelvic alignment support. Pt able to fall sleep. NURSE TECH turned on bed alarm and provided pt sheet over her before left, nurse and husbandn in room. Gait Assessment Comments Gait Comments unable at this time PT-Balance Assessment Sitting Balance and Reactions Static Sitting Balance Ability Poor M5 PT-IP Objective Assessments Start: 08/11/22 17:25 Freq: NEEDED Status: Active Protocol: Document 08/11/22 16:05 AB (Rec: 08/11/22 17:38 AB [id number]) Orientation Orientation/Cognition Level of Alertness Alert Orientation Name,Place,Situation Language Function Ability No Deficits Noted Safety Awareness Decreased Safety Awareness Memory Description No Deficits Noted Gross Range of Motion Lower Extremity ROM Assessment Within Functional Limits Strength Lower Extremity Strength Hip 3+/5 Knee 3+/5 Sensation Assessment Sensation Gross Sensation Left LE Impaired Light Touch Impaired Proprioception (Position) Impaired Sensation Description Numbness Muscle Tone Muscle Tone WNL Yes M6 PT-IP Treatment Start: 08/11/22 17:25 Freq: NEEDED Status: Active Protocol: Document 08/12/22 12:42 SP (Rec: 08/12/22 15:23 SP [id number]) Physical Therapy Treatment Education Education Provided Precautions,Safety Other Treatments Other Treatment Performed Education cues for breath and gentle abdominal bracing to support back during mobility to assist pain control. M7 PT-IP Assessment and Plan Start: 08/11/22 17:25 Freq: NEEDED Status: Active Protocol: Document 08/12/22 12:42 SP (Rec: 08/12/22 15:23 SP [id number]) PT Summary Assessment and Plan Potential Rehabilitation Potential Fair Status of Condition at Evaluation Evolving Summary Impairments Pain,ROM,Strength,Balance, Coordination,Sensation,Tone, Cognition,Bed Mobility, Transfers,Gait,Activity Tolerance Progress Towards Goals Slow Progress due to Pain,Slow Progress due to Medical Issues,Slow Progress due to Activity Tolerance Assessment Summary Pt required Max A x2 for L SL> sit, unable scoot forward fully EOB and heavy Max A x1 support in sitting. Pt reported dizziness, vitals assessed, nurse determined hypotensive. Max/Total A sit> SL>supine. At this time pt recommending HHPT 11/04 vs SNF due to medical and pain limited progression. Will continue to assess progress tomorrow. Recommending CGT with if able to go home. Goals Bed Mobility Goal Standby Assistance Transfer Goal Standby Assistance,Front Wheeled Walker Gait Goal Standby Assistance,Front Wheel Walker Gait Distance 100 Other Goals improve ambulation u sing 4WW SBA 150 ft up/down 4 steps L rail + R wall SBA Days to Meet Goals 5 Frequency of Treatment Frequency Of Treatment Twice a Day Treatment Plan Physical Therapy Treatment Plan Bed Mobility Training,Transfer Training,Gait Training, Therapeutic Exercise,Balance Retraining,Post Op Education, Discharge Planning,Hot or Cold Pack,Neuromuscular Re-ed, Coordination Retraining,Manual Therapy Other Recommendations and Next Treatment bed mob, transfers, gait, Focus stairs x4 L HR if able to be able safe DC home. CGT with pre DC home. Precautions Lumbar Precautions Log Roll,No Twisting,Limit Bending,Lifting Restriction of 10 lbs,Gait Belt above Incisional Area Recommendations To Nursing Amount of Assist Needed 3 or More Person Assist, Mechanical Lift Discharge Recommendations PT Discharge Recommendations Home with 11/04 Assist Available,Home Health,SNF Rehab,Home vs SNF Transportation Needs at Discharge Private Vehicle,Wheelchair/ Cabulance
--- NOTE | 2022-08-12 13:19 | PC.NURSE ---
Addendum entered by Sherri Grover R.N. 08/12/22 18:32: Patient tolerated Oxycodone 5mg very well, pain was adequately controlled and non drowsy. Normotensive. Original Note: Day shift note: Patient alert and oriented, sleeping between care. Very drowsy, however arouses easily. Unable to tolerate OOB with PT on second session. Patient became dizzy, pale, and C/O nausea. BP 98/51 and BG 128 mg/dl. Patient states feels better after supported back to supine position, BP 107/56, dizziness and nausea subsided. Spouse states patients baseline BP is high 90's low 100's systolic. Placed on O2 at 1L NC while sleeping due to min desats to 89%. 95% on 1L. Prior to event patient has been tolerating fluids. Wooten Catheter remains in place, clear yellow urine to gravity. Patient and spouse (Shahid) states Oxycodone 10 mg may be too strong and causing increased drowsiness. Dr. Dillard made aware of event post PT session, blood pressure, and drowsiness state. New order obtained for Oxycodone 5 mg PRN. Fluids encouraged. SCDs in place continuously. Call light within reach. Spouse Shahid at bedside providing supportive care.
[2022-08-12] MEDS: OXYCODONE IR 5 MG TABLET PO ×3 (14:42→23:33)
[2022-08-12] MEDS: SENNOSIDES 8.6 MG TABLET 17.2 MG PO (21:26)
[2022-08-12] MEDS: GABAPENTIN 300 MG CAPSULE PO (21:26)
[2022-08-12] MEDS: HYDROMORPHONE 0.5 MG INJ IV (21:27)
[2022-08-13] MEDS: ACETAMINOPHEN 325 MG TABLET 650 MG PO ×2 (02:18→18:01)
[2022-08-13 04:00] VITALS: BP 111/55; PULSE 77; RESP 14; TEMP 36.4; O2SAT 95
[2022-08-13] MEDS: OXYCODONE IR 5 MG TABLET PO ×3 (04:31→20:49)
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
[2022-08-13] MEDS: BACLOFEN 10 MG TABLET PO ×2 (07:44→18:51)
[2022-08-13 08:16] VITALS: BP 106/59; PULSE 75; RESP 19; TEMP 36.3; O2SAT 96
[2022-08-13] MEDS: MAGNESIUM HYDROXIDE 30 ML UDC PO (08:31)
[2022-08-13] MEDS: DOCUSATE 100 MG CAPSULE PO ×2 (08:31→20:48)
[2022-08-13] MEDS: estradioL 1 MG TABLET PO (08:32)
[2022-08-13] MEDS: PROGESTERONE, MICRONIZED 100 MG CAPSULE 200 MG PO (08:32)
--- NOTE | 2022-08-13 09:10 | OT.IP.TRT ---
Current Diagnoses Spondylolisthesis, lumbar region (08/11/22) Spinal stenosis, lumbar region with neurogenic claudication (08/11/22) Surgery Performed Operation Date: 08/11/22 07:45 Actual Procedures p L3-4, L4-5 TLIF w. posterior instrumentation -Robot - Matt Jasmine MD Occupational Therapy Treatment Note M2 OT-IP Current Condition Start: 08/12/22 13:10 Freq: Status: Active Protocol: Document 08/12/22 10:22 [facility] (Rec: 08/12/22 13:42 [facility] [id number]) Occupational Therapy Current Condition Current Condition Evaluation Date 08/12/22 Treatment Diagnosis S/p L3-4, L4-5 TLIF Diagnosis Onset Date 08/11/22 Post Operative Precautions Lumbar Precautions Log Roll,No Twisting,Limit Bending,Lifting Restriction of 10 lbs,Gait Belt above Incisional Area M3 OT- IP Subjective and Pain Start: 08/12/22 13:10 Freq: Status: Active Protocol: Document 08/13/22 09:32 [facility] (Rec: 08/13/22 09:43 [facility] [id number]) OT- Subjective Occupational Therapy Visit Type Type Treatment Note Visit Start Time 09:04 Visit Stop Time 09:30 Total Visit Minutes 26 Occupational Therapy Visit Comments Patient Comments Pt wanting to try to get up and states not feeling okay. Patient/Caregiver Goals TO go home. OT Pain Assessment Pain When Pain Assessed At Rest Pain Present Pain Present Pain Reported Location Left Hip Intensity 6 Scale Used Numeric (0 - 10) M4 OT- IP ADL's Start: 08/12/22 13:10 Freq: Status: Active Protocol: Document 08/13/22 09:32 [facility] (Rec: 08/13/22 09:43 [facility] [id number]) OT [id number] Comments OT Self-Feeding Comments Pt agreed to have Ensure again . OT ADL-Grooming Comments OT Grooming Comments Pt able to wash her face after set-up of wash cloth. OT ADL-Oral Care Comments Oral Care Comments Pt able to swab her mouth out after having emesis. OT ADL-Toileting General Evaluation Toileting Ability Total Assistance Comments OT Toileting Comments pisano in place OT ADL-Bathing Comments OT Bathing Comments LOw BP not appropriate at this time. M5 OT- IP IADL's Start: 08/12/22 13:10 Freq: Status: Active Protocol: Document 08/12/22 10:22 [facility] (Rec: 08/12/22 13:42 [facility] [id number]) OT-Instrumental Activities of Daily Living Home Safety Awareness Home Safety Comments Pt very groggy at this time, needing step by step instructions to follow. M6 OT- IP Functional Cognition Start: 08/12/22 13:10 Freq: Status: Active Protocol: Document 08/13/22 09:32 [facility] (Rec: 08/13/22 09:43 [facility] [id number]) Cognitive Factors Limiting Selfcare Function Cognitive Ability Level of Alertness Alert,Drowsy Patient Orientation Name,Situation Attention Span Ability Capable of Focused Attention, Capable of Sustained Attention Ability to Follow Commands Able to Follow One Step Commands Cognitive Comments Cognitive Assessment Comments Pt much more alert today and able to follow commands better . M7 OT- IP Mobility and Balance Start: 08/12/22 13:10 Freq: Status: Active Protocol: Document 08/13/22 09:32 [facility] (Rec: 08/13/22 09:43 [facility] [id number]) OT- Bed Mobility Assessment Supine to Sit Supine to Sit Assist Maximum Assistance Sit to Supine Sit to Supine Assist Maximum Assistance OT-Transfer Assessment Comments Mobility Comments MOD/MAXAx1 to get to the edge of the bed. MAX A to help scoot her to the edge of the bed. BP 115/56 supine and dropped to 91/44 and feeling nauseous and having emesis and waiting to lie down again. BP 117/65, nursing present and aware. Pt while seated on the edge of the bed, not able to fully extend for LLE into extension. OT- Balance Assessment Sitting Balance and Reactions Static Sitting Balance Ability Fair M9 OT- IP Assessment and Plan Start: 08/12/22 13:10 Freq: Status: Active Protocol: Document 08/13/22 09:32 [facility] (Rec: 08/13/22 09:43 [facility] [id number]) OT Summary Assessment and Plan Potential Rehabilitation Potential Good Analytic Complexity at Evaluation Moderate Summary OT Impairments Pain,Balance,Functional Mobility,Grooming,Dressing, Toileting,Bathing,Toilet Transfers,Shower Transfers, Activity Tolerance Progress Towards Goals Slow Progress due to Pain,Slow Progress due to Medical Issues Assessment Summary Pt having low BP when getting to the edge of the bed and having emesis. Pt still needing MAX A x1 for bed mobility needs. Pt hoping to go home with her , however pending progress and caregiver training, may need to go to skilled rehab. Goals Grooming Goal Independent Dressing Goal Minimal Assistance Toileting Goal Minimal Assistance Bathing Goal Minimal Assistance Toilet Transfer Goal Independent Shower Transfer Goal Contact Guard Assistance Days to Meet Goals 20 Frequency of Treatment Frequency Of Treatment Once a Day Treatment Plan OT Treatment Plan ADL Training,Functional Mobility,Patient/Family Education,Discharge Planning Discharge Recommendations OT Discharge Recommendations SNF Rehab Other Discharge Recommendations HOpefully pt able to make good progress and able to go home with her with 11/04 assist pending caregiver training when appropriate. Transportation Needs at Discharge Wheelchair/Cabulance,Stretcher /Ambulance
[2022-08-13] MEDS: ONDANSETRON 4 MG/2 ML INJ IV (09:18)
--- NOTE | 2022-08-13 10:39 | CM.DPC ---
Addendum entered by Emi Sheets R.N. 08/13/22 11:59: Gloria at [facility] called back, she had spoken to emiliano. She indicated that they are a contract company with [employer] that only follow patient while in the hospital. Otherwise, Gloria indicated that she would still contact her regular [employer] for insurance auth. Addendum entered by Emi Sheets R.N. 08/13/22 11:43: Spoke to patient in her room. She was laying in bed, alert and oriented. She feels that if her blood pressure improves, she can go home. She is also willing to consider going to halfway as plan B, if needed, but hopeful for home. She is aware of some facilities in [facility], and that [facility] is reviewing, and would need insurance auth. Addendum entered by Emi Sheets R.N. 08/13/22 11:19: Gloria at [facility] called back. She indicated that they are contracted with [employer]. She did look up the claim number for [employer], which is: [id number]. Let her know that this DC Cleat Thrower attempted to get in touch with them, but are closed. Gloria indicated, would most likely be Tuesday. Carrie, career counselor, did speak to someone at her insurance, [employer]. It happens that it is [employer]. Attempted to call them back, their phone number is: [phone]. There was a voice mail, left a message letting insurance know that DC Summary is not signed off because she is not discharging home due to blood pressures, pain, and not doing well with P.T. In the message also indicated that patient may need halfway. Called Gloria back at [facility] and let her know, and gave her phone number. She indicated, she has not worked with [employer] before, must be a contract company through [employer]. There is an auth number, but this if for hospital surgery, and the clainm number is the [id number]. The main barrier will be getting the insurance auth, otherwise, Gloria indicated she should be able to accept. Will speak to patient today. Original Note: DCP Cont: Was informed by Michael Ponce, PAC, patient not doing well with P.T, orthostatic hypotension. Patient not ready for discharge today. He had mentioned the possibility of patient needing halfway, per P.T. Let him know that this DC regional planner can start referrals and speak to patient, but she is [employer], and may be having difficulties getting auth. He also mentioned, she may be better to go home tomorrow. Went ahead and called some halfway facilities and faxed referrals for plan B, [facility], faxed and left message, [facility], faxed and left message, and [facility], faxed and left message. Called the [employer] at: [phone], but they are closed today. P: DCP to continue to follow. Will meet with patient today. Have sent referrals for plan B, skilled facilities, but no auth will be able to be obtained until Tuesday, yesterday being a holiday, and today, confirming that [employer] is closed. Patient could possibly go home tomorrow if improved, Emi Sheets RN/Switch Engineer
--- NOTE | 2022-08-13 12:10 | PT-IP ANOTE ---
Pt checked on in am but actively vomiting when attempting to sit up in bed. Per nursing, hold. Check back in afternoon.
[2022-08-13 12:14] VITALS: BP 117/64; PULSE 76; RESP 16; TEMP 37; O2SAT 93
--- NOTE | 2022-08-13 13:24 | PT-IP ANOTE ---
Pt in bed vomiting again. states she has been doing so on and off all day. did not want to attempt to wake pt for therapy.
[2022-08-13] MEDS: LACTATED RINGERS 1,000 ML 75 ML IV (13:36)
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
[2022-08-13] MEDS: BISACODYL 10 MG SUPP PR (14:07)
--- NOTE | 2022-08-13 15:25 | PC.NURSE ---
Addendum entered by Shabbir العراقي R.N. 08/13/22 15:49: Pt also does not want the Wooten removed at this time. Original Note: Day shift: Pt given suppository today per MAR at approx 1400. Placed on bedpan at approx 1510. No BM at this time. Pt also denies passing any flatus.
[2022-08-13] MEDS: polyethylene glycoL 3350 17 GM POWD.PACK PO (16:28)
[2022-08-13 17:06] VITALS: BP 106/60; PULSE 84; RESP 17; TEMP 36.9; O2SAT 98
--- NOTE | 2022-08-13 17:33 | PC.NURSE ---
Day shift: Pt was asked again if Wooten could be removed at approx 1700. She does not want it removed yet. She does report passing some flatus.
[2022-08-13 19:35] VITALS: BP 116/57; PULSE 81; RESP 18; TEMP 36.7; O2SAT 94
[2022-08-13] MEDS: SENNOSIDES 8.6 MG TABLET 17.2 MG PO (20:49)
[2022-08-13] MEDS: SODIUM CHLORIDE 0.9% FLUSH 10 ML IV (20:49)
[2022-08-13] MEDS: GABAPENTIN 300 MG CAPSULE PO (20:49)
[2022-08-13] MEDS: hydrOXYzine pamoate 25 MG CAPSULE PO (20:49)
[2022-08-14 02:18] VITALS: BP 117/66; PULSE 69; RESP 18; TEMP 36.4; O2SAT 97
[2022-08-14] MEDS: hydrOXYzine pamoate 25 MG CAPSULE PO (02:37)
[2022-08-14] MEDS: OXYCODONE IR 5 MG TABLET PO (02:37)
[2022-08-14 04:53] VITALS: BP 113/63; PULSE 74; RESP 18; TEMP 36.3; O2SAT 95
[2022-08-14] MEDS: HYDROMORPHONE 0.5 MG INJ IV (05:14)
[2022-08-14 08:34] VITALS: BP 97/56; PULSE 62; RESP 16; TEMP 36.3; O2SAT 96
[2022-08-14] MEDS: DOCUSATE 100 MG CAPSULE PO (08:36)
[2022-08-14] MEDS: ACETAMINOPHEN 325 MG TABLET 650 MG PO (08:36)
[2022-08-14] MEDS: polyethylene glycoL 3350 17 GM POWD.PACK PO (08:36)
[2022-08-14] MEDS: SODIUM CHLORIDE 0.9% FLUSH 10 ML IV (08:37)
[2022-08-14] MEDS: estradioL 1 MG TABLET PO (08:37)
[2022-08-14] MEDS: PROGESTERONE, MICRONIZED 100 MG CAPSULE 200 MG PO (08:37)
--- NOTE | 2022-08-14 10:33 | CM.DPNOTE ---
Discharge Planning Note: Met with patient. She states she is feeling much better today and no more N/V. She will be working with PT this morning. She states she is hoping to go home later. Plan: When medically cleared, home with spouse. Margo Allen RN/DCP
[2022-08-14 11:44] VITALS: BP 110/53; PULSE 83; RESP 16; TEMP 36.4; O2SAT 97
--- NOTE | 2022-08-14 11:56 | PT.IPTN ---
Addendum entered and electronically signed by Cindy Brown, DENIZ 08/14/22 18:34: Vitals taken: supine: BP 99/58, HR 70 SaO2 92% on RA Seated EOB: 102/53 HR 67 Original Note: Current Diagnoses Spondylolisthesis, lumbar region (08/11/22) Spinal stenosis, lumbar region with neurogenic claudication (08/11/22) Surgery Performed Operation Date: 08/11/22 07:45 Actual Procedures p L3-4, L4-5 TLIF w. posterior instrumentation -Robot - Matt Jasmine MD Physical Therapy Treatment Note M2 PT-IP Current Condition Start: 08/11/22 17:25 Freq: NEEDED Status: Discharge Protocol: Document 08/14/22 10:22 SP (Rec: 08/14/22 18:31 SP [id number]) Physical Therapy Current Condition Current Condition Evaluation Date 08/11/22 Treatment Diagnosis s/p L3-4, L4-5 TLIF; difficulty in walking Onset Date 08/11/22 M3 PT-IP Subjective Start: 08/11/22 17:25 Freq: NEEDED Status: Discharge Protocol: Document 08/14/22 10:22 SP (Rec: 08/14/22 18:31 SP [id number]) Subjective Physical Therapy Visit Type Type Treatment Note Visit Start Time 11:23 Visit Stop Time 11:56 Total Visit Minutes 33 Notes Pt agreeable CGT with , called to get ETA arrival. completed CGT including donning gait belt, bed mobility, transfer/gait/ stair support required to pt. Number of CHIEF CHEMIST Visits 2 Physical Therapy Visit Comments Patient Comments Pt agreeable to working with CHIEF CHEMIST 2nd attempt, waited for arrival for CGT. Patient Goals Return home with to assist her 11/04 available. Therapy Pain Assessment Pain When Pain Assessed During Mobility Pain Present Pain Present Pain Reported Location Left Hip Scale Used some pain but no tingling, doable Description With Movement Pain Behaviors Facial Grimacing,Moaning Pain Management Techniques Distraction,Re-positioning, Timing of Activity with Medications lower back Intensity 4 Scale Used Numeric (0 - 10) M4 PT-IP Mobility and Gait Start: 08/11/22 17:25 Freq: NEEDED Status: Discharge Protocol: Document 08/14/22 10:22 SP (Rec: 08/14/22 18:31 SP [id number]) PT-Bed Mobility Assessment Supine to Sit Supine to Sit Maximum Assistance,1 Person Assistance,Head of Bed Elevated Scooting Scooting to Edge of Bed Contact Guard Assistance PT-Transfer Assessment Sit to and From Stand Sit to and from Stand Contact Guard Assistance, Minimal Assistance,1 Person Assistance,Use of Upper Extremities Equipment Transfer Assistive Device Gait Belt,Front Wheeled Walker Orthotic/Prosthetic Devices or Brace: No Transfers Transfer Destination Chair,Wheelchair Transfer Technique pt ambulated Transfer Ability Level of Assist Contact Guard Assistance, Minimal Assistance,1 Person Assistance,Use of Upper Extremities Comments Mobility Comments Pt in R SL in bed when arrived . Provided tx 2nd (waited for arrival). CGT w/ , L SL>sit Max A for trunk righting support (cued support at upper back and pt abdominal brace engagement if needed), self LEs toEOB. Scoot to EOB CGA. Sit>stand CG/ Min A w/FWW. Gait to hallway w/c 6 ft CGA/ Phill, little unsteady BLEs but no buckled, cued quad facilitation for safety. CGA stand>sit in w/c. Wheeled pt to stairs, complete ascend/descend 4 stairs L HR and Pressure RUE on inside R HR assimulate wall step to patterning lead RLE ascend/ LLE descend, good CGA, stable. Pt gait back to room approx 120 ft w/ FWW, cued for knee extension swing phase to heel strike and quad facilitation during midstance for normal patterning/stability improved. Pt requested use of toilet when retured to room, CGA and Min A slow descent sit toilet by , self pericare in sitting and brief mgt pre sit/ stand, use grab bar as at home . Pt walked to sink 10 ft, light hand contact sink for stability, CGA/SBA for safety. Pt walk to chair, SPT cued centered pre sit, CG/BUEs slow descent to sit in chair. Pt had call light and all needs in reach before left. Notified nursing/care mgt pt is doing well able to go home to assist 11/04 available for safety/stability support. Gait Assessment Gait Gait Assistance Required: Contact Guard Assist,Minimum Assistance,1 Person Assist Distance (Feet) 140 Assistive Devices Assistive Device Gait Belt,Front Wheeled Walker Orthotic/Prosthetic Devices or Brace: No Gait Deviations General Gait Pattern Antalgic,Decreased Stride Length,Decreased Feet Clearance,Narrow Based Gait, Step-to Gait Factors Limiting Gait Function Factors Limiting Gait Function Decreased Activity Tolerance, Decreased Strength,Pain,Poor Balance,Poor Safety Awareness Comments Gait Comments see mobility comments. Stair Climbing Assessment Evaluation Level of Assist On Stairs Contact Guard Assistance, Minimal Assistance,1 Person Assistance Devices Stair Climbing Assistive Devices Left Railing,Right Railing Technique/Endurance Stair Climbing Direction Ascend and Descend Stair Climbing Technique Step to Step Number of Steps Climbed 4 Stair Climbing Set # Repetitions (reps) 1 Comments Stair Climbing Comments see mobility comments PT-Balance Assessment Sitting Balance and Reactions Static Sitting Balance Ability Good Dynamic Sitting Balance Ability Fair Standing Balance and Reactions Static Standing Balance Ability Good Dynamic Standing Balance Ability Fair Device Used FWW M5 PT-IP Objective Assessments Start: 08/11/22 17:25 Freq: NEEDED Status: Discharge Protocol: Document 08/11/22 16:05 AB (Rec: 08/11/22 17:38 AB [id number]) Orientation Orientation/Cognition Level of Alertness Alert Orientation Name,Place,Situation Language Function Ability No Deficits Noted Safety Awareness Decreased Safety Awareness Memory Description No Deficits Noted Gross Range of Motion Lower Extremity ROM Assessment Within Functional Limits Strength Lower Extremity Strength Hip 3+/5 Knee 3+/5 Sensation Assessment Sensation Gross Sensation Left LE Impaired Light Touch Impaired Proprioception (Position) Impaired Sensation Description Numbness Muscle Tone Muscle Tone WNL Yes M6 PT-IP Treatment Start: 08/11/22 17:25 Freq: NEEDED Status: Discharge Protocol: Document 08/14/22 10:22 SP (Rec: 08/14/22 18:31 SP [id number]) Physical Therapy Treatment Education Education Provided Precautions,Safety Other Treatments Other Treatment Performed Continued education cues for breath and gentle abdominal bracing to support back during mobility to assist pain control. M7 PT-IP Assessment and Plan Start: 08/11/22 17:25 Freq: NEEDED Status: Discharge Protocol: Document 08/14/22 10:22 SP (Rec: 08/14/22 18:31 SP [id number]) PT Summary Assessment and Plan Potential Rehabilitation Potential Fair Status of Condition at Evaluation Evolving Summary Impairments Pain,ROM,Strength,Balance, Coordination,Sensation,Tone, Cognition,Bed Mobility, Transfers,Gait,Activity Tolerance Progress Towards Goals Progressing Toward Goals,Slow Progress due to Pain,Slow Progress due to Activity Tolerance Assessment Summary Pt required Max A for bed mob, CG/ Min A during transfer, gait using FWW and stair mgt L HR/ lateral pressure wall assimulatinon on R that her was able to assist her during CGT tx. Pt is ok to return home with to assist her 11/04 available when medically cleared, recommending HHPT to progress strength and mobility to PLOF. Goals Bed Mobility Goal Standby Assistance Transfer Goal Standby Assistance,Front Wheeled Walker Gait Goal Standby Assistance,Front Wheel Walker Gait Distance 100 Other Goals improve ambulation u sing 4WW SBA 150 ft up/down 4 steps L rail + R wall SBA Days to Meet Goals 5 Frequency of Treatment Frequency Of Treatment Twice a Day Treatment Plan Physical Therapy Treatment Plan Bed Mobility Training,Transfer Training,Gait Training, Therapeutic Exercise,Balance Retraining,Post Op Education, Discharge Planning,Hot or Cold Pack,Neuromuscular Re-ed, Coordination Retraining,Manual Therapy Other Recommendations and Next Treatment bed mob, transfers, gait LRAD, Focus balance Precautions Lumbar Precautions Log Roll,No Twisting,Limit Bending,Lifting Restriction of 10 lbs,Gait Belt above Incisional Area Recommendations To Nursing Amount of Assist Needed 1 Person Assist Discharge Recommendations PT Discharge Recommendations Home with 11/04 Assist Available,Home Health Transportation Needs at Discharge Private Vehicle
[2022-08-14] MEDS: BACLOFEN 10 MG TABLET PO (12:42)
--- NOTE | 2022-08-14 13:34 | PC.NURSE ---
Day shift: Pt left unit via WC at approx 1335. SHERRY Justina has taken to Pt to car that Pt's Spouse is driving them home in. Pt has all personal belongings. scripts sent electronic to Pt's pharmacy. Paperwork signed and all questions answered. CMS remains intact. Pt has also voided post-pisano. Dressing remains CDI.
== END 2022-08-14 13:35 | disposition home or self-care (01) | DRG 304 ==
PROVIDERS: Admitting Provider Orthopaedic Surgery Orthopaedic Surgery of the Spine; PCP Family Medicine Sports Medicine; Referring Provider Orthopaedic Surgery Orthopaedic Surgery of the Spine; Visit Provider Orthopaedic Surgery Orthopaedic Surgery of the Spine
PROC: 0SG10AJ Fusion of 2 or more Lumbar Vertebral Joints with Interbody Fusion Device, Posterior Approach, Anterior Column, Open Approach (ICD-10-PCS; principal; 2022-08-11 07:45)
DX: M48.062 Spinal stenosis, lumbar region with neurogenic claudication (principal); M54.16 Radiculopathy, lumbar region; M43.16 Spondylolisthesis, lumbar region; R11.0 Nausea; K59.00 Constipation, unspecified; F17.200 Nicotine dependence, unspecified, uncomplicated; Y99.0 Civilian activity done for income or pay; Z20.822 Contact with and (suspected) exposure to COVID-19
CPT/HCPCS: 72100; 76000; 82962; 85014; 85018; 97116; 97162; 97166; 97530; C1713; C9290; J0171; J0330; J0690; J1170; J2405; J2704; J3010; J3410